=== PATIENT | male | born 1990 | race Two or more races ===

== ENCOUNTER 2019-02-19 08:02 | Emergency (ER) | payer SELFPAY ==
[~2019-02-19] VITALS: Ht 167.6 cm; Wt 72.1 kg
--- NOTE | 2019-02-19 08:15 | NUR ---
CAME IN FOR ANXIETY ATTACK "I AM VERY ANXIOUS, HARD FOR ME TO SLEEP AT NIGHT", TO ER BED 3, HOOKED TO MONITOR, DR GALAN AT BEDSIDE
[2019-02-19 08:45] VITALS: BP 138/80
--- NOTE | 2019-02-19 08:45 | NUR ---
DPatient discharged to home in stable condition. Written and verbal after care instructions given. Patient verbalizes understanding of instruction.
== END 2019-02-19 08:46 | disposition home or self-care (01) ==
LOC: ER 08:10
DX: F41.9 Anxiety disorder, unspecified (principal); G47.00 Insomnia, unspecified